=== PATIENT | male | born 1940 | race Caucasian/White ===

== ENCOUNTER 2017-12-27 11:57 | Emergency (ER) | payer MEDICARE, OTHER ==
[~2017-12-27] VITALS: Ht 172.7 cm; Wt 103.4 kg
[2017-12-27] MEDS ORDERED: FISH OIL 1,001000 M2 PO (12:09)
[2017-12-27] MEDS ORDERED: TOPROL XL100 MG PO (12:09)
[2017-12-27] MEDS ORDERED: ASPIR 8181 MG PO (12:09)
[2017-12-27] MEDS ORDERED: STATIN (12:10)
[2017-12-27] MEDS ORDERED: CHLORTHALIDONE25 MG PO (12:10)
[2017-12-27 12:34] LABS: ABSOLUTE BASOPHILS 0.1 thou/uL (0.0-0.2); ABSOLUTE EOSINOPHILS 0.2 thou/uL (0.0-0.7); ABSOLUTE LYMPHOCYTES 1.9 thou/uL (0.8-5.3); ABSOLUTE MONOCYTES 0.8 thou/uL (0.0-1.2); ABSOLUTE NEUTROPHILS 4.4 thou/uL (1.6-8.1); BASOPHILS 0.9 %; EOSINOPHILS 2.3 %; HEMATOCRIT 44.5 % (42.0-52.0); HEMOGLOBIN 15.5 gm/dL (14.0-18.0); LYMPHOCYTES 26.1 %; MCH 31.2 pg (26.0-34.0); MCHC 34.9 g/dL (28.0-37.0); MCV 89.4 fL (80.0-100.0); MONOCYTES 10.4 %; MPV 7.7 fl. (7.2-11.1); NUCLEATED RBCS 0 /100WBC; PLATELET COUNT* 224 thou/uL (150-400); POLYS 60.3 %; RBC 4.98 mil/uL (4.50-6.00); RDW-CV 14.2 % (10.5-14.5); WBC 7.2 thou/uL (4.0-11.0)
[2017-12-27 12:41] LABS: ANION GAP 7 mmol/L (7-16); BUN 15 mg/dL (7-18); CALCIUM 9.7 mg/dL (8.5-10.1); CHLORIDE 103 mmol/L (98-107); CO2 30 mmol/L (21-32); CREATININE 1.3 mg/dL (0.6-1.3); GLUCOSE 94 mg/dL (70-99); POTASSIUM 3.1 mmol/L (3.5-5.1); SODIUM 140 mmol/L (136-145)
[2017-12-27 12:45] LABS: APTT 25.9 Seconds (25.0-31.3); PROTIME 10.4 Seconds (9.20-11.50)
[2017-12-27 12:53] LABS: ALBUMIN 3.7 g/dL (3.4-5.0); ALKALINE PHOSPHATASE 63 U/L (46-116); LIPASE 275 U/L (73-393); NT-PRO BRAIN NAT PEPTIDE 65 pg/mL (<300); SGOT 34 U/L (15-37); SGPT 43 U/L (30-65); TOTAL BILIRUBIN 0.8 mg/dL (<0.1-1.0); TOTAL PROTEIN 7.2 g/dL (6.4-8.2); TROPONIN-I LEVEL <0.06 ng/mL (<0.06)
[2017-12-27 14:58] VITALS: BP 142/81
--- NOTE | 2017-12-27 17:12 | EKG ---
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
--- NOTE | 2017-12-28 11:02 | EKG ---
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 : 1940 Requested By: Jenny Manzo Order Number: [id number] MD: Hu Peterson Measurements Intervals [place] Rate: 58 P: -36 [place]: 212 QRS: -38 QRSD: 109 T: 9 QT: 425 QTc: 418 Interpretive Statements Sinus rhythm Borderline prolonged [place] interval Left axis deviation Abnormal R-wave progression, late transition Compared to ECG 12/27/2017 12:03:15 Myocardial infarct finding no longer present Electronically Signed On 12-28-2017 11:02:12 CDT by Hu Peterson [email or web address] <ELECTRONICALLY SIGNED> By: Hu Peterson MD, FAC 12/28/17 1102 1447 [id number] Hu Peterson MD, [facility] /EPI
== END 2017-12-27 14:58 | disposition short-term general hospital (02) ==
LOC: M.ERS 11:57
PROVIDERS: Personal Emergency Response Attendant
DX: I25.10 Atherosclerotic heart disease of native coronary artery without angina pectoris (principal); M54.9 Dorsalgia, unspecified; I10 Essential (primary) hypertension; I25.2 Old myocardial infarction